=== PATIENT | male | born 1970 | race Hispanic/Latino ===

== ENCOUNTER → 2025-04-20 | Outpatient (CLI) | payer OTHER ==
--- NOTE | 2025-04-21 07:56 | HMCIMG ---
EXAM: CT Cardiac calcium scoring. CLINICAL HISTORY: CAD screening. TECHNIQUE: Thin collimated axial CT cardiac images were obtained. A CT scan is done according to ALARA (As Low As Reasonably Achievable). CONTRAST: None. COMPARISON: None provided. FINDINGS: Old fracture in 1 of the left anterior ribs at the level of left ventricular apex. Calcium Score: VESSEL Number of lesions Volume mm3 Equi. Mass/mg Calcium score LM 2 9.6 --.-- 13.6 LAD 7 185.8 --.-- 269.6 LCX 1 0.1 --.-- 0.2 RCA 0 00.00 00.00 00.00 Total 10 195.5 --.-- 283.4 IMPRESSION: The calcium score is 283.4. This places the patient into 90th percentile in comparison to a group of patients asymptomatic for coronary artery disease with the same age and gender. This means that 90 % of males aged 50-54 have a calcium score that is lower than the patient's /[place]
== END | disposition home or self-care (01) ==
LOC: RAH 10:36
PROVIDERS: ATTEND Nurse Practitioner Family
DX: Z13.6 Encounter for screening for cardiovascular disorders (principal); I25.10 Atherosclerotic heart disease of native coronary artery without angina pectoris; I10 Essential (primary) hypertension
CPT/HCPCS: 75571